=== PATIENT | female | born 2000 | race Caucasian/White ===

== ENCOUNTER 2022-08-19 00:03 | Emergency (ER) | payer BC, OTHER ==
[2022-08-19] MEDS ORDERED: Lidocaine 1% 10 ML MDV INJECT ONE (00:49)
[2022-08-19] MEDS ORDERED: Cephalexin 500 MG Cap PO ONE (02:25)
== END 2022-08-19 02:49 | disposition home or self-care (01) ==
LOC: JD.ED 00:03
DX: S91.201A Unspecified open wound of right great toe with damage to nail, initial encounter (principal); X50.9XXA Other and unspecified overexertion or strenuous movements or postures, initial encounter; Y99.0 Civilian activity done for income or pay
CPT/HCPCS: 11730; 99283; A9270; J3490